=== PATIENT | female | born 1965 | race Caucasian/White ===

== ENCOUNTER 2016-10-06 06:52 | Emergency (ER) | payer BC ==
[~2016-10-06] VITALS: Ht 167.6 cm; Wt 136.1 kg
[~2016-10-06 06:52] MED LIST: COZAAR 50 MG TA50 M2 PO; FLEXERIL PO; HYDROCHLOROTH12.5 M1 PO; IBUPROFEN 800800 M1 PO; NORCO 5-325 TA1 EACH PO; PRILOSEC20 MG PO; TIZANIDINE HCL4 MG PO; TRAMADOL 50 MG50 MG PO; ULTRAM 50MG TAB50 MG PO
[2016-10-06 06:55] VITALS: BP 147/102
== END 2016-10-06 07:41 | disposition home or self-care (01) ==
LOC: ER 06:52
DX: S96.912A Strain of unspecified muscle and tendon at ankle and foot level, left foot, initial encounter (principal); I10 Essential (primary) hypertension; N17.9 Acute kidney failure, unspecified; F17.210 Nicotine dependence, cigarettes, uncomplicated; Z87.442 Personal history of urinary calculi; Z90.710 Acquired absence of both cervix and uterus; Z90.721 Acquired absence of ovaries, unilateral; Z88.2 Allergy status to sulfonamides; Z98.890 Other specified postprocedural states; X58.XXXA Exposure to other specified factors, initial encounter; Y93.89 Activity, other specified; Y92.89 Other specified places as the place of occurrence of the external cause; Y99.8 Other external cause status

== ENCOUNTER 2017-04-11 11:21 | Emergency (ER) | payer BC ==
[~2017-04-11] VITALS: Ht 162.6 cm; Wt 138.3 kg
[2017-04-11 12:21] LABS: ABSOLUTE NEUTROPHILS 4.5 thou/uL (1.4-8.2); BASOPHILS 0.7 % (0.0-2.0); EOSINOPHILS 1.9 % (0.0-3.0); HEMATOCRIT 34.7 % (37.0-47.0); HEMOGLOBIN 11.6 gm/dL (12.0-15.0); LYMPHOCYTES 13.2 % (24.0-44.0); MCHC 33.5 g/dL (28.0-37.0); MCV 71.6 fL (80.0-100.0); MONOCYTES 11.1 % (1.0-8.0); PLATELET COUNT 265 thou/uL (150-400); POLYS 73.1 % (36.0-66.0); RBC 4.84 mil/uL (4.20-5.00); RDW 15.8 % (10.5-14.5); WBC 6.1 thou/uL (4.0-11.0)
[2017-04-11 12:30] LABS: CREATININE 0.8 mg/dL (0.6-1.0); POTASSIUM 3.6 mmol/L (3.5-5.1)
[2017-04-11] MEDS ORDERED: TESSALON PERLE100 MG PO (12:35)
[2017-04-11] MEDS ORDERED: DOXYCYCLINE 10100 MG PO (12:35)
[2017-04-11] MEDS ORDERED: NAPROSYN500 MG PO (12:35)
== END 2017-04-11 13:25 | disposition home or self-care (01) ==
LOC: ER 11:21
PROVIDERS: Physician Assistant
DX: J18.9 Pneumonia, unspecified organism (principal); R05 Cough; F17.210 Nicotine dependence, cigarettes, uncomplicated; I10 Essential (primary) hypertension; M79.7 Fibromyalgia; Z90.710 Acquired absence of both cervix and uterus; Z98.890 Other specified postprocedural states; Z88.2 Allergy status to sulfonamides

== ENCOUNTER 2017-11-25 19:35 | Emergency (ER) | payer OTHER ==
[~2017-11-25] VITALS: Ht 167.6 cm; Wt 131.5 kg
--- NOTE | ~2017-11-25 | EKG ---
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
[~2017-11-25 19:35] MED LIST changes: +DOXYCYCLINE 10100 MG PO; +NAPROSYN500 MG PO; +TESSALON PERLE100 MG PO
[2017-11-25] MEDS ORDERED: NEURONTIN 300300 M1 PO (19:54)
[2017-11-25] MEDS ORDERED: METFORMIN HCL500 MG PO (19:55)
[2017-11-25 20:23] LABS: URINE BILIRUBIN NEGATIVE (Negative); URINE BLOOD NEGATIVE (Negative); URINE CLARITY CLEAR; URINE COLOR YELLOW; URINE GLUCOSE-RANDOM* NEGATIVE (Negative); URINE KETONES NEGATIVE (Negative); URINE LEUKOCYTES TRACE (Negative); URINE NITRITE NEGATIVE (Negative); URINE PROTEIN (DIPSTICK) NEGATIVE (Negative); URINE UROBILINOGEN 0.2 E.U./dl (0.2-1.0)
[2017-11-25 21:35] LABS: ABSOLUTE NEUTROPHILS 4.8 thou/uL (1.4-8.2); BASOPHILS 0.6 % (0.0-2.0); EOSINOPHILS 1.6 % (0.0-3.0); HEMOGLOBIN 11.3 gm/dL (12.0-15.0); MCH 23.6 pg (26.0-34.0); MCHC 32.3 g/dL (28.0-37.0); MONOCYTES 6.5 % (1.0-8.0); PLATELET COUNT 296 thou/uL (150-400); POLYS 58.3 % (36.0-66.0); WBC 8.2 thou/uL (4.0-11.0)
[2017-11-25 21:46] LABS: ANION GAP 9 mmol/L (7-16); BUN 16 mg/dL (7-18); CALCIUM 9.4 mg/dL (8.5-10.1); CHLORIDE 99 mmol/L (98-107); CO2 29 mmol/L (21-32); CREATININE 0.9 mg/dL (0.6-1.0); GLUCOSE 98 mg/dL (74-106); POTASSIUM 3.5 mmol/L (3.5-5.1); SODIUM 137 mmol/L (136-145)
[2017-11-25 21:54] LABS: ALBUMIN 3.5 g/dL (3.4-5.0); MAGNESIUM 1.7 mg/dL (1.8-2.4); SGOT 20 U/L (15-37); SGPT 34 U/L (30-65); TOTAL BILIRUBIN 0.4 mg/dL (<0.1-1.0); TOTAL PROTEIN 7.5 g/dL (6.4-8.2); TROPONIN-I <0.06 ng/mL (<0.06)
[2017-11-25] MEDS ORDERED: BENTYL 20 MG TA20 M1 PO (23:27)
[2017-11-25 23:50] VITALS: BP 112/66
== END 2017-11-25 23:30 | disposition home or self-care (01) ==
LOC: ER 19:35
PROVIDERS: Nurse Practitioner Family
DX: R07.89 Other chest pain (principal); R19.7 Diarrhea, unspecified; I10 Essential (primary) hypertension; M79.7 Fibromyalgia; F17.210 Nicotine dependence, cigarettes, uncomplicated; Z87.442 Personal history of urinary calculi; Z88.2 Allergy status to sulfonamides; Z90.710 Acquired absence of both cervix and uterus

== ENCOUNTER 2018-08-05 16:26 | Emergency (ER) | payer BC, OTHER ==
[~2018-08-05] VITALS: Ht 165.1 cm; Wt 124.3 kg
[~2018-08-05 16:26] MED LIST changes: +BENTYL 20 MG TA20 M1 PO; +METFORMIN HCL500 MG PO; +NEURONTIN 300300 M1 PO
[2018-08-05] MEDS ORDERED: LOMAIRA8 MG PO (16:31)
[2018-08-05] MEDS ORDERED: IRON325 PO (16:32)
[2018-08-05] MEDS ORDERED: VITAMIN B122500 MC1 PO (16:32)
[2018-08-05] MEDS ORDERED: TYLENOL325 MG PO (16:32)
[2018-08-05] MEDS ORDERED: VITAMIN D2000 UNIT PO (16:32)
[2018-08-05] MEDS ORDERED: ALEVE220 MG PO (16:32)
[2018-08-05 16:50] LABS: URINE BILIRUBIN NEGATIVE (Negative); URINE BLOOD NEGATIVE (Negative); URINE CLARITY CLEAR; URINE COLOR YELLOW; URINE GLUCOSE-RANDOM* NEGATIVE (Negative); URINE KETONES NEGATIVE (Negative); URINE LEUKOCYTES-REFLEX NEGATIVE (Negative); URINE NITRITE-REFLEX NEGATIVE (Negative); URINE PROTEIN (DIPSTICK) NEGATIVE (Negative); URINE SPECIFIC GRAVITY 1.015 (1.005-1.035); URINE UROBILINOGEN 0.2 E.U./dl (0.2-1.0)
[2018-08-05 16:54] LABS: ABSOLUTE NEUTROPHILS 4.6 thou/uL (1.4-8.2); BASOPHILS 0.6 % (0.0-2.0); EOSINOPHILS 3.3 % (0.0-3.0); HEMATOCRIT 32.2 % (37.0-47.0); HEMOGLOBIN 10.5 gm/dL (12.0-15.0); LYMPHOCYTES 26.9 % (24.0-44.0); MCH 24.1 pg (26.0-34.0); MCHC 32.5 g/dL (28.0-37.0); MCV 74.2 fL (80.0-100.0); MONOCYTES 5.6 % (1.0-8.0); PLATELET COUNT 301 thou/uL (150-400); POLYS 63.6 % (36.0-66.0); RBC 4.33 mil/uL (4.20-5.00); RDW 15.8 % (10.5-14.5); WBC 7.2 thou/uL (4.0-11.0)
[2018-08-05 17:05] LABS: ANION GAP 11 mmol/L (7-16); BUN 14 mg/dL (7-18); CALCIUM 9.4 mg/dL (8.5-10.1); CHLORIDE 101 mmol/L (98-107); CO2 27 mmol/L (21-32); CREATININE 0.9 mg/dL (0.6-1.0); GLUCOSE 115 mg/dL (74-106); POTASSIUM 3.4 mmol/L (3.5-5.1); SODIUM 139 mmol/L (136-145)
[2018-08-05 17:18] LABS: APTT 28.2 Seconds (24.5-32.8); D-DIMER 1.09 ug/mLFEU (0.19-0.50); PROTIME 10.1 Seconds (9.3-11.4)
--- NOTE | 2018-08-05 17:20 | EKG ---
[place] [address] [facility] [place] [address] ELECTROCARDIOGRAM REPORT Name: RODNEY GARCIA Room #: PRE [facility].R.#: [id number] ������������������ Admission: ������������������ Attend Phys: Discharge: ������������������ Date of : 61 Report #: [id number] ����������������������������������������������������������������� [id number] THIS REPORT FOR: //name// 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 : 1965 Requested By: Neftali Hutchins Order Number: [id number] MD: Kaushik Smith Measurements Intervals [place] Rate: 85 P: 30 CA: 142 QRS: 42 QRSD: 82 T: 27 QT: 376 QTc: 447 Interpretive Statements Sinus rhythm No significant abnormality Compared to ECG 11/25/2017 19:40:23 No significant change was found Electronically Signed On 08-05-2018 17:19:52 CDT by Kaushik Smith [email or web address] ��������������������������������������������� <ELECTRONICALLY SIGNED> ���������������������������������������� By: Kaushik Smith MD, [facility] ��������������������������������������������� 08/05/18 1719 1630 1630 Kaushik Smith MD, FACC /EPI
[2018-08-05 17:21] LABS: ALBUMIN 3.6 g/dL (3.4-5.0); MAGNESIUM 1.7 mg/dL (1.8-2.4); SGOT 18 U/L (15-37); SGPT 25 U/L (30-65); TOTAL BILIRUBIN 0.4 mg/dL (<0.1-1.0); TOTAL PROTEIN 7.6 g/dL (6.4-8.2); TROPONIN-I <0.06 ng/mL (<0.06)
[2018-08-05] MEDS ORDERED: VENTOLIN HFA 1818 GM INH (18:38)
[2018-08-05] MEDS ORDERED: TRIAMTERENE-HC1 EAC1 PO (18:45)
[2018-08-05 19:10] VITALS: BP 152/87
== END 2018-08-05 19:11 | disposition home or self-care (01) ==
LOC: ER 16:26
PROVIDERS: Emergency Medicine
DX: K21.9 Gastro-esophageal reflux disease without esophagitis (principal); R06.00 Dyspnea, unspecified; R60.0 Localized edema; F17.210 Nicotine dependence, cigarettes, uncomplicated; I10 Essential (primary) hypertension; M79.7 Fibromyalgia; Z88.2 Allergy status to sulfonamides; Z87.442 Personal history of urinary calculi; Z90.710 Acquired absence of both cervix and uterus; Z90.721 Acquired absence of ovaries, unilateral; Z90.89 Acquired absence of other organs

== ENCOUNTER 2019-09-16 16:01 | Emergency (ER) | payer OTHER ==
[~2019-09-16] VITALS: Ht 167.6 cm; Wt 127.0 kg
[~2019-09-16 16:01] MED LIST changes: +ALEVE220 MG PO; +IRON325 PO; +LOMAIRA8 MG PO; +TRIAMTERENE-HC1 EAC1 PO; +TYLENOL325 MG PO; +VENTOLIN HFA 1818 GM INH; +VITAMIN B122500 MC1 PO; +VITAMIN D2000 UNIT PO
[2019-09-16] MEDS ORDERED: APAP650 PO (16:16)
[2019-09-16] MEDS ORDERED: HYDROCHLOROTHIA25 M2 PO (16:17)
[2019-09-16] MEDS ORDERED: VITAMIN C250 MG PO (16:18)
[2019-09-16 16:35] LABS: URINE BILIRUBIN NEGATIVE (Negative); URINE BLOOD NEGATIVE (Negative); URINE CLARITY CLEAR; URINE COLOR YELLOW; URINE GLUCOSE-RANDOM* NEGATIVE (Negative); URINE KETONES NEGATIVE (Negative); URINE LEUKOCYTES-REFLEX NEGATIVE (Negative); URINE NITRITE-REFLEX NEGATIVE (Negative); URINE PROTEIN (DIPSTICK) NEGATIVE (Negative); URINE SPECIFIC GRAVITY 1.025 (1.005-1.035); URINE UROBILINOGEN 0.2 E.U./dl (0.2-1.0)
[2019-09-16 16:55] LABS: ABSOLUTE NEUTROPHILS 3.9 thou/uL (1.4-8.2); BASOPHILS 0.9 % (0.0-2.0); EOSINOPHILS 3.8 % (0.0-3.0); HEMATOCRIT 33.9 % (37.0-47.0); HEMOGLOBIN 11.2 gm/dL (12.0-15.0); LYMPHOCYTES 32.6 % (24.0-44.0); MCH 25.5 pg (26.0-34.0); MCHC 33.1 g/dL (28.0-37.0); MCV 77.1 fL (80.0-100.0); MONOCYTES 5.5 % (1.0-8.0); PLATELET COUNT 289 thou/uL (150-400); POLYS 57.2 % (36.0-66.0); RBC 4.39 mil/uL (4.20-5.00); RDW 15.3 % (10.5-14.5); WBC 6.9 thou/uL (4.0-11.0)
[2019-09-16 17:38] LABS: CREATININE 0.9 mg/dL (0.6-1.0); POTASSIUM 3.5 mmol/L (3.5-5.1)
[2019-09-16 17:45] LABS: ALBUMIN 3.5 g/dL (3.4-5.0); TOTAL BILIRUBIN 0.3 mg/dL (0.2-1.0); TOTAL PROTEIN 7.3 g/dL (6.4-8.2)
[2019-09-16] MEDS ORDERED: ONDANSETRON HCL4 M2 PO (19:36)
[2019-09-16] MEDS ORDERED: NORCO 5-325 TA1 EAC1 PO (19:36)
[2019-09-16 19:52] VITALS: BP 137/65
== END 2019-09-16 19:59 | disposition still patient (30) ==
LOC: ER 16:01
PROVIDERS: Physician Assistant
DX: N20.0 Calculus of kidney (principal); I10 Essential (primary) hypertension; M79.7 Fibromyalgia; F17.210 Nicotine dependence, cigarettes, uncomplicated; Z98.890 Other specified postprocedural states; Z79.899 Other long term (current) drug therapy; Z88.2 Allergy status to sulfonamides; Z87.442 Personal history of urinary calculi

== ENCOUNTER 2020-09-15 14:47 | Emergency (ER) | payer OTHER ==
[~2020-09-15] VITALS: Ht 167.6 cm; Wt 134.7 kg
[~2020-09-15 14:47] MED LIST changes: +APAP650 PO; +HYDROCHLOROTHIA25 M2 PO; +NORCO 5-325 TA1 EAC1 PO; +ONDANSETRON HCL4 M2 PO; +VITAMIN C250 MG PO
[2020-09-15] MEDS ORDERED: REQUIP 0.25 M0.25 M1 PO (14:56)
[2020-09-15] MEDS ORDERED: ROSUVASTATIN CA20 MG PO (14:57)
[2020-09-15] MEDS ORDERED: VENLAFAXINE HC150 M1 PO (14:57)
[2020-09-15] MEDS ORDERED: NEURONTIN 300M300 M2 PO (14:57)
[2020-09-15 15:23] LABS: ABSOLUTE NEUTROPHILS 5.2 thou/uL (1.4-8.2); BASOPHILS 0.4 % (0.0-2.0); EOSINOPHILS 8.5 % (0.0-3.0); HEMATOCRIT 41.7 % (37.0-47.0); LYMPHOCYTES 25.2 % (24.0-44.0); MCH 27.2 pg (26.0-34.0); MCHC 33.6 g/dL (28.0-37.0); MONOCYTES 5.3 % (1.0-8.0); PLATELET COUNT 302 thou/uL (150-400); POLYS 60.6 % (36.0-66.0); RBC 5.15 mil/uL (4.20-5.00); RDW 14.1 % (10.5-14.5); WBC 8.6 thou/uL (4.0-11.0)
[2020-09-15 15:26] LABS: ANION GAP 7 mmol/L (7-16); BUN 18 mg/dL (7-18); CALCIUM 9.6 mg/dL (8.5-10.1); CHLORIDE 102 mmol/L (98-107); CO2 30 mmol/L (21-32); CREATININE 0.9 mg/dL (0.6-1.0); GLUCOSE 114 mg/dL (74-106); POTASSIUM 3.7 mmol/L (3.5-5.1); SODIUM 139 mmol/L (136-145)
[2020-09-15 15:36] LABS: ALBUMIN 3.8 g/dL (3.4-5.0); LIPASE 116 U/L (73-393); SGOT 39 U/L (15-37); SGPT 47 U/L (14-59); TOTAL BILIRUBIN 0.5 mg/dL (0.2-1.0); TOTAL PROTEIN 7.9 g/dL (6.4-8.2); TROPONIN-I <0.06 ng/mL (<0.06)
--- NOTE | 2020-09-15 16:21 | EKG ---
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
[2020-09-15 16:41] LABS: URINE BILIRUBIN NEGATIVE (Negative); URINE BLOOD NEGATIVE (Negative); URINE CLARITY CLEAR; URINE COLOR YELLOW; URINE GLUCOSE-RANDOM* NEGATIVE (Negative); URINE KETONES NEGATIVE (Negative); URINE LEUKOCYTES-REFLEX NEGATIVE (Negative); URINE NITRITE-REFLEX NEGATIVE (Negative); URINE PROTEIN (DIPSTICK) NEGATIVE (Negative); URINE SPECIFIC GRAVITY 1.025 (1.005-1.035); URINE UROBILINOGEN 0.2 E.U./dl (0.2-1.0)
[2020-09-15] MEDS ORDERED: PEPCID40 MG PO (19:53)
[2020-09-15 19:57] VITALS: BP 134/68
== END 2020-09-15 20:28 | disposition admitted as inpatient to this hospital (09) ==
LOC: ER 14:47
PROVIDERS: Emergency Medicine
DX: R11.2 Nausea with vomiting, unspecified (principal); R19.7 Diarrhea, unspecified; R10.13 Epigastric pain; R10.11 Right upper quadrant pain; R07.89 Other chest pain; I10 Essential (primary) hypertension; E11.9 Type 2 diabetes mellitus without complications; E78.5 Hyperlipidemia, unspecified; Z87.442 Personal history of urinary calculi; F17.210 Nicotine dependence, cigarettes, uncomplicated; Z90.710 Acquired absence of both cervix and uterus; Z88.2 Allergy status to sulfonamides

== ENCOUNTER 2021-03-07 19:38 | Emergency (ER) | payer OTHER ==
[~2021-03-07] VITALS: Ht 165.1 cm; Wt 136.1 kg
--- NOTE | ~2021-03-07 | EMS ---
[place] [id number] EMS Patient Care Report Name: RODNEY GARCIA Room #: REG PIO Lemon#: [id number] Admission: 03/07/21 Attend Phys: Discharge: Date of : 61 Report #: [id number] THIS REPORT FOR: //name// Report Transmitted: 03/07/2021 19:15 EMS Care Summary [place], [place]/[facility] Incident [id number] @ 03/07/2021 19:02 Incident Location [address] [place] [address] Patient HIGINIO GARCIA Female, 55 Years 1965 Patient Address [address] [place] [address] Patient History Diabetes,Hypertension (HTN),Fibromyalgia,Morbid Obesity,Back Pain (Chronic), Patient Allergies Sulfa,Dilaudid, Patient Medications Gabapentin, Hydrochlorothiazide (Hctz), Meloxicam, Losartan, Chief Complaint fall- r hip knee pain Disposition Transported No Lights/[place] Reason Falls Transported To [facility] Narrative Arrived to find pt sitting on couch in front living room with . stated she came home and found her laying on the stairs in the front entryway. Pt stated she did not get dizzy but lost her footing and fell down 3 stairs onto her right side. Pt denies hitting her head or losing consciousness. [place] [address] EMS Patient Care Report Name: RODNEY GARCIA Room #: REG [facility]..#: [id number] Admission: 03/07/21 Attend Phys: Discharge: Date of : 61 Report #: [id number] on blood thinners. stated she placed pt on a sheet and dragged her up the 3 stairs to the couch. Pt is AOx3 GCS 15. Pt denies neck or back pain and has PMS in all extremities. Pt c/o right hip and right knee pain. Pt placed on stair chair and taken down one set of internal and one set of external stairs where she was placed on cot and secured to cot with cot straps. Pt placed in back of unit and placed in surgical mask. Pt administered pain meds Intranasally and transported without incident. Care to RN, rm 10. drug box 522 blue tag [id number] Initial Vitals @19:16P: 96,R: 24,BP: 164/82,Pain: 10,GCS: 15,Glucose: 109,SpO2: 95,Revised Trauma: 12, @19:25P: 98,R: 22,BP: 154/85, Assessments @19:10MENTAL:Place Oriented,Person Oriented,Event Oriented,Time Oriented,SKIN:HEENT:Neck/Airway: No Abnormalities,LUNG SOUNDS:General: No Abnormalities,Left Upper: No Abnormalities,Right Upper: No Abnormalities,Left Lower: No Abnormalities,Right Lower: No Abnormalities,ABDOMEN:General: No Abnormalities,Left Upper: No Abnormalities,Right Upper: No Abnormalities,Left Lower: No Abnormalities,Right Lower: No Abnormalities,PELVIS//GI:No Abnormalities,EXTREMITIES:Right Leg: Other,Left Arm: No Abnormalities,Right Arm: No Abnormalities,Left Leg: No Abnormalities,PULSE:NEURO: Impression Extremity Pain Procedures @19:10 ALS Assessment Response: UnchangedSucceeded @19:20 3-Lead ECG Response: UnchangedSucceeded @19:21 IV Therapy - Saline Lock 0cc (20 ga) Site: Antecubital-Right Response: UnchangedFailed @19:23 Fentanyl - 100 Micrograms (mcg) - Intranasal Response: Unchanged Timeline 19:00,Call Received 19:00,Dispatch Notified 19:02,Dispatched 19:02,En Route 19:08,On Scene 19:09,At Patient 19:10,ALS Assessment,Response: UnchangedSucceeded, 19:16,BP: 164/82 M,PULSE: 96,RR: 24 R,SPO2: 95 Ox,ETCO2: ,B,PAIN: [place] [address] EMS Patient Care Report Name: RODNEY GARCIA Room #: REG [facility].#: [id number] Admission: 03/07/21 Attend Phys: Discharge: Date of : 61 Report #: [id number],GCS: 15, 19:20,3-Lead ECG,Response: UnchangedSucceeded, 19:21,IV Therapy - Saline Lock 0cc 20 ga Site: Antecubital-Right,Response: UnchangedFailed, 19:23,Fentanyl - 100 Micrograms (mcg) - Intranasal,Response: Unchanged 19:25,BP: 154/85 M,PULSE: 98,RR: 22 R,SPO2: Ox,ETCO2: ,BG: ,PAIN: ,GCS: , 19:28,Depart Scene 19:33,At Destination 19:45,Call Closed Disclaimer [email or web address] Copyright 2020 [employer] This EMS Care Summary contains data elements from the applicable legal record (which may be displayed differently). It is designed to provide pertinent information for the following purposes: continuity of care, clinical quality, and state data reporting. The complete legal record is available to ED staff and administrators of the receiving hospital in [employer]'s Patient Tracker. All data is provided "as is."
[~2021-03-07 19:38] MED LIST changes: +NEURONTIN 300M300 M2 PO; +PEPCID40 MG PO; +REQUIP 0.25 M0.25 M1 PO; +ROSUVASTATIN CA20 MG PO; +VENLAFAXINE HC150 M1 PO
[2021-03-07] MEDS ORDERED: NORCO 10-325 T1 EACH PO (21:54)
[2021-03-07] MEDS ORDERED: ULTRA-LIGHT RO1 EACH (21:54)
[2021-03-07 22:00] VITALS: BP 120/82
== END 2021-03-07 22:10 | disposition home or self-care (01) ==
LOC: ER 19:38
DX: S80.01XA Contusion of right knee, initial encounter (principal); I10 Essential (primary) hypertension; E78.5 Hyperlipidemia, unspecified; E11.9 Type 2 diabetes mellitus without complications; M79.7 Fibromyalgia; F17.210 Nicotine dependence, cigarettes, uncomplicated; Z90.710 Acquired absence of both cervix and uterus; Z90.721 Acquired absence of ovaries, unilateral; Z87.442 Personal history of urinary calculi; Z88.2 Allergy status to sulfonamides; Z88.5 Allergy status to narcotic agent; Z79.899 Other long term (current) drug therapy; W10.8XXA Fall (on) (from) other stairs and steps, initial encounter; Y93.89 Activity, other specified; Y92.89 Other specified places as the place of occurrence of the external cause; Y99.8 Other external cause status